=== PATIENT | male | born 1975 | race Caucasian/White ===

== ENCOUNTER 2025-04-04 10:47 | Outpatient (CLI) | payer OTHER, SELFPAY ==
--- OUTSIDE RECORDS SUMMARY | 2025-04-04 10:51 | XMS_ITS | Encounter Summary ---
Author Organization [facility] Address [address] [place] [address] Care Team Providers Care Trapper Animal Name Role Phone Krishna Benítez DO Primary Care Provider + Encounter Details Date Type Department Care Team (Late Contact Info) Description 03/15/2024 MyChart Message Enc [facility] Family & Internal [address] [phone] Krishna Benítez DO [address] [place] [address] [phone] Set[place] Social History Tobacco Use Types Packs/Day Years Used Date Smoking Tobacco: Never Smokeless Tobacco: Never Alcohol Use Standard Drinks/Week Comments Yes 1.7 (1 standard drink = 0.6 oz p ure alcohol) couple times a month PHQ-2 Answer Date Recorded Patient Health Questionnaire-2 Score 0 02/24/2024 Sex and Gender Information Value Date Recorded Sex Assigned at Male 11/22/2024 8:12 AM SUPERANNUATION FUNDS MANAGER Legal Sex Male 7:30 PM CDT Gender Identity Male 11/22/2024 8:12 AM SUPERANNUATION FUNDS MANAGER Sexual Orientation Not on file 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 Family [facility] Medicine - [place] [address] [place] [address] Krishna Benítez DO [address] [place] [address] documented as of this encounter Visit Diagnoses Not on filedocumented in this encounter Additional Health Concerns Assessment Noted Time PHQ-9 Depression Total Score: 0 04/23/20 23 1:10 PM CDT documented as of this encounter Care Teams Trapper Animal Relationship Specialty Start Date End Date Krishna Benítez DO [address] [place] [phone] PCP - General FAMILY PRACTICE 09/24/21 documented as of this encounter
--- OUTSIDE RECORDS SUMMARY | 2025-04-04 10:51 | XMS_ITS | Clinical Summary ---
Author Organization [facility] Address [address] [place] [id number] Care Team Providers Care Supervisor Farm Equipment Maintenance Name Role Phone MichelebambiKrishna vo Mervin MONTOYA Primary Care Provider + Allergies No known active allergies Medications naproxen (NAPROSYN) 500 MG tabletIndication s:Chronic left shoulder pain TAKE 1 TABLET(500 MG) BY MOUTH TWICE DAILY WITH MEALS 60 tablet 2 03/22/2024 Active levothyroxine (SYNTHROID) 75 MCG tabletIndication s:Ranulfo's thyroiditis TAKE 1 TABLET(75 MCG) BY MOUTH EVERY MORNING 30 tablet 8 02/13/2025 Active Active Problems Problem Noted Date Diagnosed Date Ranulfo's thyroiditis 11/22/2024 Iron deficiency anemia, unsp ecified iron deficiency anemia type 06/01/2024 Anxiety Resolved Problems Problem Noted Date Diagnosed Date Resolved Date Poison girish dermatitis 05/27/20222022 Immunizations Immunization Administration Dates Next Due Fluzone (IIV3, Trivalent, 0. 5 ML Prefilled Syringe) 08/10/2024 Hepatitis A (Havrix [address]) 02/12/2006 Hepatitis B Vaccine Adult 03/12/2006,02/12/2006 Influenza Adult (Generic) 07/26/2021,08/24/2020, 07/02/2018 Tdap (Adacel) 09/24/2021 Family History Medical History Relation Comments Obesity Father Heart Disease Maternal Grandfather Breast Cancer Mother Cancer Mother Relation Status Comments Father Alive Maternal Grandfather Mother Alive Social History Tobacco Use Types Packs/Day Years Used Date Smoking Tobacco: Never Smokeless Tobacco: Never Alcohol Use Standard Drinks/Week Comments Yes 1.7 (1 standard drink = 0.6 oz p ure alcohol) couple times a month PHQ-2 Answer Date Recorded Patient Health Questionnaire-2 Score 0 11/22/2024 Sex and Gender Information Value Date Recorded Sex Assigned at Male 11/22/2024 8:12 AM MANAGER BUSINESS INFORMATION Legal Sex Male 7:30 PM CDT Gender Identity Male 11/22/2024 8:12 AM MANAGER BUSINESS INFORMATION Sexual Orientation Not on file 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 Not on file Not on file Not on file Last Filed Vital Signs Vital Sign Reading Time Taken Comments Blood Pressure 124/82 11/22/2024 8:13 AM MANAGER BUSINESS INFORMATION Pulse 88 11/22/2024 8:13 AM MANAGER BUSINESS INFORMATION Temperature 36.8 C (98.3 F) 11/22/2024 8:13 AM MANAGER BUSINESS INFORMATION Respiratory Rate 16 11/22/2024 8:13 AM MANAGER BUSINESS INFORMATION Oxygen Saturation 98% 11/22/2024 8:13 AM MANAGER BUSINESS INFORMATION Inhaled Oxygen Concentration - - Weight 100.4 kg (221 lb 4.8 oz) 11/22/2024 8:13 AM MANAGER BUSINESS INFORMATION Height 175.3 cm (5' 9) 11/22/2024 8:13 AM MANAGER BUSINESS INFORMATION Body Mass Index 32.68 11/22/2024 8:13 AM MANAGER BUSINESS INFORMATION Plan of Treatment Upcoming Encounters Date Type Department Care Team (Late st Contact Info) Description 04/25/2025 7:40 AM CDT Laboratory Only [facility] Family & Internal Medicine [address] [phone] Krishna Benítez DO [address] [place] [address] 05/02/2025 7:20 AM CDT Office Visit [facility] Family & Internal [address] [phone] Krishna Benítez DO [address] [place] [address] Health Maintenance Due Date Last Done Comments Hepatitis B Vaccines (3 of 3 - 19+ 3-dose series) 08/15/2006 03/12/2006, 02/12/2006 Annual Physical 09/24/2022 09/24/2021 COVID-19 Vaccine (4 2023-2 5 season) 2025 08/30/2021, 12/15/2020, 11/17/2020 Postponed from 05/29/2024 (Going to Outside Clinic) Colorectal Cancer Screening FIT-DNA (3 Years) 08/21/2026 08/21/2023, 08/21/2023 DTaP, Tdap and Td Vaccines ( 2 - Td or Tdap) 09/24/2031 09/24/2021 Hepatitis C Completed 09/24/2021 PHQ-2 (Physician [place]) Completed 11/22/2024 Meningococcal B Vaccine Aged Out No l onger eligible based on patient's age to complete this topic Meningococcal Vaccine Aged Out No nayeli hayden eligible based on patient's age to complete this topic Pneumococcal Vaccine: Pediatrics (0 to 5 Years) and At-Risk Patients (6 to 49 Years) Aged Out No longer eligible b ased on patient's age to complete this topic RSV Immunizations Under 20 Months Aged Out No longer eligible b ased on patient's age to complete this topic Procedures Procedure Name Priority Date/Time Associated Diagnosis Comments COLOGUARD (EXACT SCIENCE) Routine 08/21/2023 8:30 AM MANAGER BUSINESS INFORMATION Screening for malignant neoplasm of colon HEPATITIS C ANTIBODY Routine 09/24/2021 8:41 AM MANAGER BUSINESS INFORMATION Encounter for preventative adult health care examination Need for hepatitis C screening test from Last 3 Months or Most Recently Relevant to Health Maintenance Results * COLOGUARD (EXACT SCIENCE) (08/21/2023 8:30 AM MANAGER BUSINESS INFORMATION) COLOGUARD RESULT Negative Negative [facility] (CLIA #:[id number]) Comment: NEGATIVE TEST RESULT. A negative Cologuard result indicates a low likelihood that a colorectal cancer (CRC) or advanced adenoma (adenomatous polyps with more advanced pre-malignant features) is present. The chance that a person with a negative Cologuard test has a colorectal cancer is less than 1 in 1500 (negative predictive value >99.9%) or has an advanced adenoma is less than 5.3% (negative predictive value 94.7%). These data are based on a prospective cross-sectional study of 10,000 individuals at average risk for colorectal cancer who were screened with both Cologuard and colonoscopy. (Jacqueline García, N Engl J Med 2014;370(14):1731-1773) The normal value (reference range) for this assay is negative. COLOGUARD RE-SCREENING RECOMMENDATION: Periodic colorectal cancer screening is an important part of preventive healthcare for asymptomatic individuals at average risk for colorectal cancer. Following a negative Cologuard result, the [place] Cancer Society and U.S. Multi-Society Task Force screening guidelines recommend a Cologuard re-screening interval of 3 years. References: [place] [employer] Guideline for Colorectal Cancer Screening: https://www.cancer.org/cancer/chrcx-fuvhym-mpdipj/svwogjlel-xfbblkfqe-uglttpe/ac s-rec ommendations.html.; Bin DK, Jose Carlos VALENZUELA, Aimee BowensK, Colorectal Cancer Screening: Recommendations for Physicians and Patients from the U.S. Multi-Society Task Force on Colorectal Cancer Screening , Am J Gastroenterology 2017; 112:1128-2419. TEST DESCRIPTION: Composite algorithmic analysis of stool DNA-biomarkers with hemoglobin immunoassay. Quantitative values of individual biomarkers are not reportable and are not associated with individual biomarker result reference ranges. Cologuard is intended for colorectal cancer screening of adults of either sex, 45 years or older, who are at average-risk for colorectal cancer (CRC). Cologuard has been approved for use by the U.S. FDA. The performance of Cologuard was established in a cross sectional study of average-risk adults aged 50-84. Cologuard performance in patients ages 45 to 49 years was estimated by sub-group analysis of near-age groups. Colonoscopies performed for a positive result may find as the most clinically significant lesion: colorectal cancer [4.0%], advanced adenoma (including sessile serrated polyps greater than or equal to 1cm diameter) [20%] or non- advanced adenoma [31%]; or no colorectal neoplasia [45%]. These estimates are derived from a prospective cross-sectional screening study of 10,000 individuals at average risk for colorectal cancer who were screened with both Cologuard and colonoscopy. (Imperiale T. et al, N Engl J Med 2014;370(14):9114-1962.) Cologuard may produce a false negative or false positive result (no colorectal cancer or precancerous polyp present at colonoscopy follow up). A negative Cologuard test result does not guarantee the absence of CRC or advanced adenoma (pre-cancer). The current Cologuard screening interval is every 3 years. ([place] [employer] Society and U.S. Multi-Society Task Force). Cologuard performance data in a 10,000 patient pivotal study using colonoscopy as the reference method can be accessed at the following location: www.[employer]/results. Additional description of the Cologuard test process, warnings and precautions can be found at www.[employer].com. STOOL STOOL SPECIMEN / Unknown 08/21/2023 8:30 AM MANAGER BUSINESS INFORMATION 08/22/2023 11:03 AM MANAGER BUSINESS INFORMATION Krishna Benítez DO BODY FLUIDS AND STOOLS O RDERABLES Final Result Performing Organization Address [facility] de Phone Number [phone], [facility] [address] [phone], [facility] (CLIA #:[id number]) [address] [place] [address] * HEPATITIS C ANTIBODY (09/24/2021 8:41 AM MANAGER BUSINESS INFORMATION) HEPATITIS C AB NON-REACTI VE NON-REACT [id number] 09/24/2021 6:38 PM MANAGER BUSINESS INFORMATION [facility] Comment: ANTIBODIES TO HCV NOT DETECTED. DOES NOT EXCLUDE THE POSSIBILITY OF EXPOSURE TO HCV. 09/24/2021 8:41 AM MANAGER BUSINESS INFORMATION Krishna Benítez DO LABORATORY Final Re sult Performing Organization Address [facility] Co de Phone Number [facility] [address] [place] [address], [place] [phone] from Last 3 Months or Most Recently Relevant to Health Maintenance Insurance [facility] Care Teams Supervisor Farm Equipment Maintenance Relationship Specialty Start Date End Date Krishna Benítez DO [address] [place] [phone] PCP - General FAMILY PRACTICE 09/24/21
== END 2025-04-04 10:48 | disposition home or self-care (01) ==
LOC: ANHAUDIO 10:49
PROVIDERS: PCP Family Medicine Adolescent Medicine; Visit Provider Student in an Organized Health Care Education/Training Program
DX: H90.42 Sensorineural hearing loss, unilateral, left ear, with unrestricted hearing on the contralateral side (principal); E03.9 Hypothyroidism, unspecified
CPT/HCPCS: 92557; 92567